=== PATIENT | female | born 1995 | race Caucasian/White ===

== ENCOUNTER 2017-03-17 15:59 | Inpatient (IN) | payer SELFPAY ==
[~2017-03-17] VITALS: Ht 170.2 cm; Wt 58.1 kg
--- NOTE | ~2017-03-17 | CON ---
[place], [place] REPORT OF CONSULTATION NAME: JEANNIE YIN UNIT #: [id number] ROOM: [place] [address] DOCTOR: MURALI COOK BIRTHDATE: [birth year] DOS: 03/18/2017 HISTORY OF PRESENT ILLNESS: A 22-year-old female who attempted to kill herself with an overdose of 24 tablets of Tylenol after confronting her boyfriend, who apparently was cheating on her again. She drove up from [place] after she found out that he was cohabitating in their home with somebody else, handed off her baby, who is under the age of 1, and then proceeded to take the capsules. PAST MEDICAL HISTORY: Nothing significant. MENTAL STATUS: The patient is alert and oriented x 3. There are no auditory or visual hallucinations, delusions, paranoia, mirna or hypomania. Sleep last night was fairly good, appetite has been off and on poor, and her sleep has been poor at home. She states that she has had ongoing issues with this boyfriend that she has had this child with that she had left her family in [place] to be on the road with him. He works 80 hours a week, and this is not the first time that he is cheating on her. She said that she a couple of weeks ago went home to [place] to work on herself because she felt that she was becoming overly anxious, insecure, nagging, and depressed and this was not her. It should also be noted that during that time, the doctor started her on Zoloft. She feels that she may have gotten worse on the Zoloft or at least no improvement. Somebody face-timed her or send her a Facebook message, told her that her boyfriend was living in her trailer/home with this other person and she lost it. She is regretful, admits that at the time she was not thinking about her daughter or anything like that. She also is having issues at home. Her mom just cheated on her father, and they are going through a divorce as well. She does have his family and friends as far as support system. It should be noted that her father is bipolar, so there is the family history of that. I am going to be cautious as far as the medications I choose to use for depression with her because wrong medications could trigger the bipolar or make her more suicidal, which is possible what may have happened with the Zoloft. 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 PLAN: I discontinued her Zoloft, I am going to try Prozac. Prozac is appropriate. It will help with her depression. She also has a lot of underlying anxiety, but it is also safe to use with somebody who may be genetically predisposed for bipolar. We can titrate it if need be, we will start her out on the lowest possible dose. I did discuss with her. I also told her that I did not think it needed to be long-term that we might just keep her on it for 8 months as she does better with therapy and gets a better sense of self and focusing on herself and her baby at this point in time and then will look at weaning it away. This seemed to make her happy. She is agreeable to trying therapy back home in [place]. She has a good support system with friends and her mom and dad; they are going through this divorce. I do think that she would benefit from therapy. I think she has lost her sense of self and her self-worse with the cheating of the boyfriend and the trauma that is going along with that. So we will start with the Prozac and we can go from there and have her follow up with the therapist that she is seeing back home in [place], [place] REPORT OF CONSULTATION NAME: JEANNIE YIN UNIT #: [id number] ROOM: [place] [address] DOCTOR: MURALI COOK BIRTHDATE: [birth year] [place]. YUMIKO COOK CNP CM:CONSTR:REPORT OF CONSULTATION 09 03/18/172116 interface
[2017-03-17 16:16] VITALS: BP 128/85
[2017-03-17 16:21] LABS: BASO # 0.1 10*3/uL (0.0-0.1); BASO % 0.8 % (0.0-1.0); EOS % 0.2 % (1.0-4.0); HEMATOCRIT 40.3 % (37.0-47.0); HEMOGLOBIN 13.9 g/dl (12.0-16.0); LYMPH # 1.3 10*3/uL (1.3-4.4); LYMPH % 20.2 % (27.0-41.0); MEAN CELL VOLUME 87.4 fl (81.0-99.0); MEAN CORPUSCULAR HGB 30.2 pg (27.0-31.0); MEAN CORPUSCULAR HGB CONC 34.5 g/dl (33.0-37.0); MEAN PLATELET VOLUME 10.1 fl (9.6-12.3); MONO # 0.5 10*3/uL (0.1-1.0); MONO % 8.3 % (3.0-9.0); NEUT # 4.5 10*3/uL (2.3-7.9); NEUT % 70.2 % (47.0-73.0); PLATELET COUNT AUTOMATED 219 10*3/uL (130-400); RED BLOOD COUNT 4.61 10*6/uL (4.10-5.10); RED CELL DISTRI WIDTH 12.3 % (0-14.5); WHITE BLOOD COUNT 6.5 10*3/uL (4.8-10.8)
--- NOTE | 2017-03-17 16:25 | NUR ---
POISON CONTROL CALLED AND GIVEN PATIENT INFO. WILL FAX PAPERWORK HERE TO ER DEPT. PT AMBULATORY TO BATHROOM TO PROVIDE URINE SPECIMEN AT THIS TIME.
[2017-03-17 16:50] VITALS: BP 124/68
[2017-03-17 16:53] LABS: BILIRUBIN NEGATIVE (NEGATIVE); BLOOD TRACE-INTACT (NEGATIVE); CLARITY CLOUDY (CLEAR); COLOR YELLOW (YELLOW); GLUCOSE NEGATIVE (NEGATIVE); KETONE 1+ (NEGATIVE); LEUKO ESTERASE 1+ (NEGATIVE); NITRITE NEGATIVE (NEGATIVE); SPECIFIC GRAVITY 1.025 (1.005-1.030); UROBILINOGEN 0.2 E.U./dl (0.2-1.0)
--- NOTE | 2017-03-17 16:53 | NUR ---
DebiAC #[id number] BY EMS DISCONTINUED- NOT PATENT. NEW IV ESTABLISHED.
[2017-03-17 17:05] LABS: ALBUMIN 4.3 gm/dl (3.1-4.5); ALKALINE PHOSPHATASE 66 U/L (45-117); BUN 10 mg/dl (7-24); CHLORIDE 105 mmol/L (98-107); CREATININE 0.92 mg/dL (0.55-1.02); POTASSIUM 3.3 mmol/L (3.5-5.1); SGOT/AST 10 IU/L (3-35); SGPT/ALT 11 U/L (12-78); SODIUM 139 mmol/L (136-145); TOTAL PROTEIN 8.4 gm/dL (6.4-8.2)
--- NOTE | 2017-03-17 17:06 | NUR ---
PT TELLS ME SHE WANTS NO VISITORS AND NO PHONE CALLS. BOYFRIEND SHANDRA CALLS TO SPEAK WITH PATIENT AND ASKS WHEN HE CAN COME SEE HER. I INFORMED HIM OF PATIENT'S WISHES AND TOLD HIM I COULD GIVE NO MEDICAL INFORMATION OVER THE PHONE TO HIM. HE VERBALIZED UNDERSTANDING.
[2017-03-17 17:07] VITALS: BP 116/75
[2017-03-17 17:07] LABS: BACTERIA TRACE; MUCOUS 1+; RBC 0-2 rbc/hpf (0-2)
[2017-03-17 17:13] LABS: ETHYL ALCOHOL < 3.0 mg/dl (<3)
[2017-03-17 17:14] LABS: URINE AMPHETAMINES < 1000 (1000ng/ml); URINE BARBITURATES < 200 (200ng/ml); URINE BENZODIAZEPINES < 200 (200ng/ml); URINE CANNABINOIDS (THC) < 50 (50ng/ml); URINE COCAINE < 300 (300ng/ml); URINE METHADONE < 300 (300ng/ml); URINE OPIATES < 300 (300ng/ml)
[2017-03-17 17:15] LABS: ACETAMINOPHEN (TYLENOL) 193.3 ug/ml (10-30)
[2017-03-17 17:15] LABS: URINE PHENCYCLIDINE < 25 (25ng/ml)
[2017-03-17 17:50] VITALS: BP 113/68
--- NOTE | 2017-03-17 17:50 | NUR ---
iv acetadote infusing per emar.
--- NOTE | 2017-03-17 18:17 | NUR ---
A 22, admitted to [facility]U, under the services of STUART Carrizales DO with a diagnosis of SUICIDAL IDEATION AND TYLENOL OVERDOSE. Chief complaint is TOOK 24 TYLNEOL PM. Patient arrived via stretcher from ER. Monitor applied. Initial assessment completed. Vital signs taken and recorded. STUART CARRIZALES DO notified of admission to the unit. Orders received. See assessment for past medical history, medications and allergies. Patient and/or family oriented to unit. [facility] visitation policy reviewed. Clothing/patient valuable form completed. CHANTALE DAY
[2017-03-17] MEDS ORDERED: ZOLOFT25 MG PO (18:23)
--- NOTE | 2017-03-17 19:16 | NUR ---
MESSAGE LEFT FOR LEELA DE LEÓN VIA ANSWERING SERVICE. AWAITING RETURN CALL.
--- NOTE | 2017-03-17 19:24 | NUR ---
DR. DE LEÓN IS UNABLE TO TAKE CONSULT AT THIS TIME. DR. VENEGAS NOTIFIED.
--- NOTE | 2017-03-17 19:29 | NUR ---
DR. LEE STATES HE IS NOT TAKING ANY CALL THIS OR MONDAY. I WILL NOTIFY YUMIKO OF CONSULT.
--- NOTE | 2017-03-17 19:32 | NUR ---
24 HR chart check completed.
--- NOTE | 2017-03-17 19:32 | NUR ---
YUMIKO NOTIFIED OF CONSULT. SHE WILL SEE HER IN AM.
[2017-03-17 20:00] VITALS: BP 125/73
[2017-03-17 20:03] LABS: ALBUMIN 3.7 gm/dl (3.1-4.5); ALKALINE PHOSPHATASE 53 U/L (45-117); BILIRUBIN, DIRECT 0.1 mg/dL (0.0-0.2); SGOT/AST 5 IU/L (3-35); SGPT/ALT 19 U/L (12-78); TOTAL PROTEIN 7.3 gm/dL (6.4-8.2)
[2017-03-17 20:05] LABS: TROPONIN I < 0.015 ng/ml (<0.045)
--- NOTE | 2017-03-17 20:06 | NUR ---
DR. VENEGAS NOTIFIED OF ACETAMINOPHEN LEVEL. NO NEW ORDERS AT THIS TIME.
[2017-03-17 20:07] LABS: ACETAMINOPHEN (TYLENOL) 69.7 ug/ml (10-30); ETHYL ALCOHOL < 3.0 mg/dl (<3)
--- NOTE | 2017-03-17 21:50 | NUR ---
POISON CONTROL UPDATED ON POC AND LABS. THEY STATE THAT A HEPATIC PANEL NEEDS ORDERED FOR 1100.
[2017-03-18] VITALS: BP 120/68
[2017-03-18 04:00] VITALS: BP 113/54
[2017-03-18 06:19] LABS: BASO # 0.1 10*3/uL (0.0-0.1); BASO % 0.5 % (0.0-1.0); EOS % 0.4 % (1.0-4.0); HEMATOCRIT 36.7 % (37.0-47.0); HEMOGLOBIN 12.1 g/dl (12.0-16.0); LYMPH # 2.8 10*3/uL (1.3-4.4); LYMPH % 27.2 % (27.0-41.0); MEAN CELL VOLUME 90.4 fl (81.0-99.0); MEAN CORPUSCULAR HGB 29.8 pg (27.0-31.0); MEAN PLATELET VOLUME 10.6 fl (9.6-12.3); MONO # 0.8 10*3/uL (0.1-1.0); NEUT # 6.7 10*3/uL (2.3-7.9); NEUT % 63.7 % (47.0-73.0); PLATELET COUNT AUTOMATED 180 10*3/uL (130-400); RED BLOOD COUNT 4.06 10*6/uL (4.10-5.10); RED CELL DISTRI WIDTH 12.4 % (0-14.5); WHITE BLOOD COUNT 10.4 10*3/uL (4.8-10.8)
[2017-03-18 06:50] LABS: ALBUMIN 3.3 gm/dl (3.1-4.5); BUN 4 mg/dl (7-24); CHLORIDE 109 mmol/L (98-107); CHOLESTEROL 115 mg/dL (<200); CREATININE 0.61 mg/dL (0.55-1.02); MAGNESIUM 1.8 mg/dL (1.5-2.1); PHOSPHOROUS 2.7 mg/dL (2.5-4.9); POTASSIUM 3.8 mmol/L (3.5-5.1); SGOT/AST 8 IU/L (3-35); SGPT/ALT 12 U/L (12-78); SODIUM 138 mmol/L (136-145); TRIGLYCERIDES 42 mg/dl (<150); VLDL CHOLESTEROL 8 mg/dL (6-40)
[2017-03-18 06:53] LABS: ACT PARTIAL THROMBO TIME 26.3 SECONDS (20.8-31.5); INTERNATIONAL NORM RATIO 1.3 (2.0-3.5)
[2017-03-18 06:58] LABS: ALKALINE PHOSPHATASE 49 U/L (45-117); FREE T4 1.15 ng/dl (0.76-1.46); HDL CHOLESTEROL 63 mg/dl (40-60); LDL CHOLESTEROL 44 mg/dL (9-159); TOTAL PROTEIN 6.5 gm/dL (6.4-8.2)
[2017-03-18 07:10] LABS: VITAMIN D, 25-HYDROXY 34.8 ng/mL (30-100)
--- NOTE | 2017-03-18 07:40 | NUR ---
24 HR chart check completed.
[2017-03-18 08:00] VITALS: BP 113/79
[2017-03-18 09:21] LABS: ALBUMIN 3.3 gm/dl (3.1-4.5); BILIRUBIN, DIRECT 0.2 mg/dL (0.0-0.2); TOTAL PROTEIN 6.6 gm/dL (6.4-8.2)
--- NOTE | 2017-03-18 11:20 | NUR ---
YUMIKO COOK INTO CONSULT WITH PT. SHE WILL START HER ON PROZAC AND DC THE ZOLOFT R/T FATHER IS BIPOLAR AND SHOULD HAVE NEVER BEEN STARTED ON THIS. SHE ALSO WANTS HER TO HAVE AN APPOINTMENT MADE WITH HER THERAPIST WITH IN 24-48 HOURS OF DISCHARGE.
[2017-03-18 12:00] VITALS: BP 110/74
--- NOTE | 2017-03-18 12:51 | NUR ---
POISON CONTROL HAS SIGNED OFF.
[2017-03-18 16:00] VITALS: BP 116/83
[2017-03-18 20:00] VITALS: BP 86/49
[2017-03-19] VITALS: BP 106/64
[2017-03-19 04:00] VITALS: BP 112/66
[2017-03-19 06:34] LABS: BASO % 0.7 % (0.0-1.0); EOS # 0.1 10*3/uL (0.0-0.4); EOS % 1.4 % (1.0-4.0); HEMOGLOBIN 11.4 g/dl (12.0-16.0); LYMPH # 2.4 10*3/uL (1.3-4.4); LYMPH % 40.5 % (27.0-41.0); MEAN CELL VOLUME 91.4 fl (81.0-99.0); MEAN CORPUSCULAR HGB 29.8 pg (27.0-31.0); MEAN CORPUSCULAR HGB CONC 32.6 g/dl (33.0-37.0); MEAN PLATELET VOLUME 10.9 fl (9.6-12.3); MONO # 0.4 10*3/uL (0.1-1.0); MONO % 7.6 % (3.0-9.0); NEUT # 2.9 10*3/uL (2.3-7.9); NEUT % 49.8 % (47.0-73.0); PLATELET COUNT AUTOMATED 161 10*3/uL (130-400); RED BLOOD COUNT 3.83 10*6/uL (4.10-5.10); RED CELL DISTRI WIDTH 12.5 % (0-14.5); WHITE BLOOD COUNT 5.8 10*3/uL (4.8-10.8)
[2017-03-19 06:52] LABS: ALBUMIN 3.1 gm/dl (3.1-4.5); BUN 4 mg/dl (7-24); CHLORIDE 111 mmol/L (98-107); CREATININE 0.56 mg/dL (0.55-1.02); POTASSIUM 3.5 mmol/L (3.5-5.1); SGOT/AST 10 IU/L (3-35); SGPT/ALT 10 U/L (12-78); SODIUM 141 mmol/L (136-145); TOTAL PROTEIN 6.2 gm/dL (6.4-8.2)
[2017-03-19 06:53] LABS: ACETAMINOPHEN (TYLENOL) < 2.0 ug/ml (10-30); ALKALINE PHOSPHATASE 45 U/L (45-117)
[2017-03-19 08:00] VITALS: BP 100/58; BP 100/60
[2017-03-19] MEDS ORDERED: FLUOXETINE HYDR20 M1 PO (11:45)
--- NOTE | 2017-03-19 12:02 | NUR ---
Discharge instructions reviewed with patient/family. Patient receptive and verbalizes understanding. Follow-up care arranged. Written instructions given to patient/family. BRUNO AVELAR
== END 2017-03-19 12:02 | disposition home or self-care (01) | DRG 918 ==
LOC: ED 15:59 → EDHOLD 17:24 → ICCU 17:40
PROVIDERS: Family Medicine; Hospitalist; Nurse Practitioner Family; Student in an Organized Health Care Education/Training Program; ADMIT Emergency Medicine
DX: T39.1X2A Poisoning by 4-Aminophenol derivatives, intentional self-harm, initial encounter (principal); F32.2 Major depressive disorder, single episode, severe without psychotic features; R45.851 Suicidal ideations; Y92.89 Other specified places as the place of occurrence of the external cause; T14.91 Suicide attempt; R00.0 Tachycardia, unspecified; E87.6 Hypokalemia; R73.9 Hyperglycemia, unspecified